=== PATIENT | male | born 1950 | race Hispanic/Latino ===

== ENCOUNTER 2017-03-29 13:33 | Outpatient (CLI) | payer MEDICARE ==
[2017-03-29 14:13] LABS: BUN/Creatinine Ratio 8.46; Calcium 8.8 mg/dL (8.4-10.2); Chloride 101.6 mmol/L (98-107); Potassium 4.2 mmol/L (3.6-5.0)
== END 2017-03-29 13:34 | disposition home or self-care (01) ==
LOC: LAB 13:33
PROVIDERS: ATTEND Internal Medicine Nephrology
DX: I10 Essential (primary) hypertension (principal); E78.5 Hyperlipidemia, unspecified; M12.9 Arthropathy, unspecified; R60.9 Edema, unspecified; R94.4 Abnormal results of kidney function studies
CPT/HCPCS: 36415; 80048